=== PATIENT | male | born 1995 | race Caucasian/White ===

== ENCOUNTER 2019-09-09 11:39 | Day surgery (SDC) | payer OTHER ==
[~2019-09-09] VITALS: Ht 185.4 cm; Wt 77.1 kg
[~2019-09-09 11:39] MED LIST: LR 1,000 ML IV ONE
[2019-09-09] MEDS ORDERED: ONDANSETRON 4MG/2ML VIAL (J2405) As Ordered ONE (14:11)
[2019-09-09] MEDS ORDERED: PROPOFOL 200 MG/20 ML VIAL As Ordered ONE (14:11)
[2019-09-09] MEDS ORDERED: SUGAMMADEX SODIUM 500 MG/5 ML VIAL (BRIDION) As Ordered ONE (14:11)
[2019-09-09] MEDS ORDERED: METOCLOPRAMIDE INJ 10MG/2ML VIAL (J2765) As Ordered ONE (14:11)
[2019-09-09] MEDS ORDERED: LIDOCAINE 2% INJ 100 MG/5 ML SDV (FOR ANES.) As Ordered ONE (14:11)
[2019-09-09] MEDS ORDERED: MIDAZOLAM INJ 2 MG/2 ML VIAL (J2250) As Ordered ONE (14:11)
[2019-09-09] MEDS ORDERED: ROCURONIUM BROMIDE 50 MG/5 ML VIAL As Ordered ONE (14:11)
[2019-09-09] MEDS ORDERED: dexameTHASONE 4 MG/ML 1ML VIAL (J1100) As Ordered ONE (14:11)
[2019-09-09] MEDS ORDERED: fentaNYL 100 MCG/2 ML INJECTION (J3010) As Ordered ONE (14:11)
[2019-09-09] MEDS ORDERED: LACRILUBE (AKWA TEARS) OPHTH OINT 3.5 GM As Ordered ONE (14:12)
[2019-09-09] MEDS ORDERED: METHYLENE BLUE 0.5% (5MG/ML) 10 ML AMP (PROVAYBLUE)(Q9968 PER 1MG) As Ordered ONE (14:59)
[2019-09-09] MEDS ORDERED: EPINEPHrine 1MG/ML INJ 30ML MD-VIAL As Ordered ONE (14:59)
[2019-09-09] MEDS ORDERED: LIDOCAINE W/EPINEPHRINE 1% 20ML VIAL As Ordered ONE (14:59)
[2019-09-09] MEDS ORDERED: ACETAMINOPHEN 1000MG 100ML IV BTL (OFIRMEV) (J0131 PER 10MG) As Ordered ONE (15:27)
[2019-09-09] MEDS ORDERED: GLYCOPYRROLATE INJ 0.2 MG/ML 2 ML VIAL As Ordered ONE (15:27)
[2019-09-09] MEDS ORDERED: PHENYLephrine HCL 500 MCG/5 ML (100MCG/ML) SYRINGE (J2370) As Ordered ONE (15:30)
[2019-09-09] MEDS ORDERED: LR 1,000 ML IV SCH ×2 (16:30)
[2019-09-09] MEDS ORDERED: ACETAMINOPH W/CODEINE #3 TAB UD PO PRN (16:30)
[2019-09-09] MEDS ORDERED: ONDANSETRON 4MG/2ML VIAL (J2405) IV PRN (16:30)
[2019-09-09] MEDS ORDERED: oxyCODONE 5MG TAB PO PRN (16:30)
[2019-09-09] MEDS: fentaNYL 100 MCG/2 ML INJECTION (J3010) IV PRN ×2 (16:46→16:51)
[2019-09-09 17:45] VITALS: BP 127/85
--- NOTE | 2019-09-10 00:28 | RO ---
DATE OF PROCEDURE: 09/09/2019 PREPROCEDURE DIAGNOSIS: Nasal deformity, nasal septal deviation. POSTPROCEDURE DIAGNOSIS: Nasal deformity, nasal septal deviation. PROCEDURE: Septoplasty, nasal in-fracture. SURGEON: Rahat Aguirre MD THIRD RIGGER: ANESTHESIA: General. DESCRIPTION OF PROCEDURE: Under general anesthesia with the patient intubated, the patient was prepped and draped in the usual manner. I used pledgets of adrenaline 1:1000 and infiltrated with lidocaine with epinephrine. I started first by making an incision on the left side and elevating the mucoperiosteum-perichondrium. I elevated the mucosa on both sides. I the quadrangular cartilage from the maxillary crest. There was a spur on the right side of the maxillary crest, so I removed that using the forceps. I then the quadrangular cartilage from the ethmoid plate, removed portions of the ethmoid plate which were deviated. I sectioned the cartilage anteriorly and then sutured it in the midline. Once this was done, the septum was straight, so the incision was closed with #4-0 chromic. I made an incision anterior to the inferior aspect of the nasal bone and elevated the periosteum on both sides. Medial and lateral osteotomies were performed using the chisel. In-fracture was performed. Patient tolerated the procedure well. A cast was applied of Aquaplast. The patient tolerated the procedure well, was extubated and transferred to the recovery room in excellent condition.
== END 2019-09-09 17:50 | disposition home or self-care (01) ==
LOC: M SDC 11:39
PROVIDERS: ATTEND Otolaryngology
DX: J34.2 Deviated nasal septum (principal)
CPT/HCPCS: 30520; 30930; 88300; J0131; J1100; J2250; J2370; J2405; J2765; J3010; Q9968